=== PATIENT | male | born 1995 | race Caucasian/White ===

== ENCOUNTER 2016-12-25 01:40 | Emergency (ER) | payer OTHER ==
[~2016-12-25] VITALS: Ht 190.5 cm; Wt 83.2 kg
[2016-12-25 01:53] VITALS: TEMP 37.2; Ht 190.5 cm; Wt 83.2 kg
[2016-12-25] MEDS ORDERED: LISD40CA PO (01:55)
[2016-12-25] MEDS ORDERED: AMPH15CA7 PO (01:56)
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
[2016-12-25 02:10] LABS: HEMATOCRIT 43.3 % (42-52); MEAN CELL VOLUME 89.5 fL (80-100); MEAN CORPUSCULAR HGB CONC 35.8 g/dl (32-36); PLATELET COUNT 271 K/uL (130-400); RED BLOOD COUNT 4.84 M/uL (4.7-6.1)
[2016-12-25 02:27] LABS: BUN/CREATININE RATIO 8.8 (10-20); CALCIUM 8.8 mg/dl (8.5-10.1); CREATININE 1.1 mg/dl (0.60-1.40); POTASSIUM 3.3 mmol/L (3.5-5.1)
[2016-12-25] MEDS ORDERED: LIDOCAINE HCL 1% 20 ML VIAL ONE (03:33)
[2016-12-25] MEDS ORDERED: XYLOCAINE 1%/SOD BICARB 20 ML VIAL INFIL ONE (03:45)
--- NOTE | 2016-12-25 03:54 | EMERGENCY ROOM VISIT NOTE ---
ED Visit Note Patient seen and evaluated with my attending physician, Dr. Chao, for a left eyebrow laceration. Please see Dr. Chao's dictation for full history of present illness and Emergency Department course outside of this repair. On examination the patient has a fairly linear 2.6 cm laceration through the left eyebrow. This does gape and will require repair. Laceration repair. Patient elects to have their laceration repaired. Verbal consent was obtained to perform the procedure. There is an abundance of materials available for the procedure. Patient is not allergic to latex. Using sterile technique the wound was cleaned with Betadine. The area was sterilely draped. 2 ml of 1% buffered lidocaine was used to anesthetize the left eyebrow laceration. Once the patient was anesthetized, the wound was copiously irrigated under pressure with sterile saline. The wound was explored and there were no deep structures injured such as tendons, bone, or significant blood vessels. The laceration was repaired using 4 simple interrupted 6-0 nylon sutures with the wound edges being well approximated. Hemostasis was achieved. The area was cleaned with sterile saline and dressed with bacitracin ointment and bandage. Patient tolerated the procedure well without complications. Blood loss was negligible. Problem List Medical Problems: (1) ADHD Status: Chronic Current/Historical Medications Scheduled Lisdexamfetamine Dimesylate (Vyvanse), 40 MG PO DAILY Scheduled PRN Amphetamine-Dextroamphetamine 15MG (Adderall Xr 15MG), 15 MG PO DAILY PRN for CONCENTRATION Allergies Coded Allergies: No Known Allergies (Unverified , 12/25/16) Vital Signs Date Time Temp Pulse Resp B/P (MAP) Pulse Ox O2 Delivery O2 Flow Rate FiO2 12/25/16 03:10 110 24 92 12/25/16 03:03 12/25/16 03:02 12/25/16 02:55 115 18 96 12/25/16 02:40 115 14 92 12/25/16 02:31 139/99 12/25/16 02:25 114 20 91 12/25/16 02:01 129/84 12/25/16 01:59 147/91 12/25/16 01:55 119 18 96 Room Air 12/25/16 01:53 37.2 115 18 158/87 94 Room Air 12/25/16 01:45 124 12/25/16 01:42 158/87 Laboratory Results 12/25/16 02:00 12/25/16 02:00 Test 12/25/16 02:00 Red Blood Count 4.84 M/uL (4.7-6.1) Mean Corpuscular Volume 89.5 fL (80-100) Mean Corpuscular Hemoglobin 32.0 pg (25-34) Mean Corpuscular Hemoglobin Concent 35.8 g/dl (32-36) RDW Standard Deviation 39.4 fL (36.4-46.3) RDW Coefficient of Variation 12.1 % (11.5-14.5) Mean Platelet Volume 10.0 fL (7.4-10.4) Anion Gap 10.0 mmol/L (3-11) Est Creatinine Clear Calc Drug Dose 124.0 ml/min Estimated GFR () 109.9 Estimated GFR (Non- 94.8 BUN/Creatinine Ratio 8.8 (10-20) Calcium Level 8.8 mg/dl (8.5-10.1) Ethyl Alcohol mg/dL 186.0 mg/dl (0-3) Departure Information Referrals No Doctor, Assigned (PCP) Patient Instructions My [facility]
[2016-12-25 05:00] VITALS: BP 136/81; PULSE 96; O2SAT 98
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
== END 2016-12-25 05:01 | disposition home or self-care (01) ==
LOC: C.EDA 01:43
DX: S01.112A Laceration without foreign body of left eyelid and periocular area, initial encounter (principal); T51.0X1A Toxic effect of ethanol, accidental (unintentional), initial encounter; Y04.8XXA Assault by other bodily force, initial encounter; Y93.89 Activity, other specified; Y92.039 Unspecified place in apartment as the place of occurrence of the external cause; F90.9 Attention-deficit hyperactivity disorder, unspecified type